=== PATIENT | male | born 1970 | race Caucasian/White ===

== ENCOUNTER 2019-08-12 15:00 | Emergency (ER) | payer OTHER ==
[~2019-08-12] VITALS: Ht 170.2 cm; Wt 93.4 kg
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
[2019-08-12 15:37] VITALS: BP 130/88
--- NOTE | 2019-08-12 16:07 | NUR ---
ED Nurse Note: Patient currently awaiting results of radiology.
--- NOTE | 2019-08-12 16:45 | Diagnostic Imaging Report ---
EXAM: CT Head Without Intravenous Contrast CLINICAL HISTORY: H A TECHNIQUE: Axial computed tomography images of the head brain without intravenous contrast. CTDI is 64.4 mGy and DLP is 1280.10 mGy-cm. One or more of the following dose reduction techniques were used: automated exposure control, adjustment of the mA and or kV according to patient size, use of iterative reconstruction technique. COMPARISON: None FINDINGS: Brain: No acute infarct or hemorrhage. No extra-axial fluid collection. No mass effect or midline shift. Ventricles and sulci: Normal. No ventriculomegaly or intraventricular hemorrhage. Skull: Normal. No bony lesion or fracture. Subcutaneous tissues: Normal. Sinuses: Normal. No air-fluid levels or mucosal thickening. Mastoid air cells: Normal. Orbits: Grossly unremarkable. IMPRESSION: No acute intracranial abnormality.
[2019-08-12 17:04] VITALS: BP 145/83
--- NOTE | 2019-08-12 17:04 | NUR ---
ER DISCHARGE NOTE: Patient is cleared to be discharged per ERMD, pt is aox4, on room air, with stable vital signs. pt was given dc, pt was able to verbalize understanding, pt id band removed. pt is able to ambulate with steady gait. pt took all belongings.
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
--- NOTE | 2019-08-12 17:11 | NUR ---
ER DISCHARGE NOTE: ER discharge note signed by RN after providing discharge advice
== END 2019-08-12 17:07 | disposition home or self-care (01) ==
LOC: EMR 15:36
DX: R51 Headache (principal); V43.52XA Car driver injured in collision with other type car in traffic accident, initial encounter; Y92.410 Unspecified street and highway as the place of occurrence of the external cause
CPT/HCPCS: 70450; 99284